=== PATIENT | male | born 1955 | race Caucasian/White ===

== ENCOUNTER 2017-11-17 09:57 | Emergency (ER) | payer MEDICARE ==
[2017-11-17] MEDS ORDERED: diphenhydrAMINE 50 MG/ML VIAL ONE (10:09)
== END 2017-11-17 11:11 | disposition home or self-care (01) ==
LOC: BURERS 09:57
DX: T63.441A Toxic effect of venom of bees, accidental (unintentional), initial encounter (principal); I10 Essential (primary) hypertension; F17.210 Nicotine dependence, cigarettes, uncomplicated
CPT/HCPCS: 94760; 96374; J1200

== ENCOUNTER 2018-12-13 07:13 | Emergency (ER) | payer MEDICARE ==
[2018-12-13] MEDS ORDERED: Ondansetron PF 4 MG/2 ML Vial ONE (07:48)
[2018-12-13] MEDS ORDERED: Lorazepam 2 MG/ML VIAL ONE ×2 (07:48→08:46)
[2018-12-13 08:05] LABS: #Basophils 0.1 thou/uL (0.0-0.2); #Lymphocytes 0.9 thou/uL (1.20-3.40); #Monocytes 0.7 thou/uL (0.11-0.59); #Neutrophils 8.4 thou/uL (1.40-6.50); %Basophils 0.9 % (0.0-1.0); %Lymphocytes 9.3 % (21.0-51.0); %Monocytes 6.6 % (0.0-10.0); %Neutrophils 83.2 % (42.0-75.0); Hemoglobin 14.7 g/dL (14.0-18.0); Mean Corpuscular HGB CONC 34.5 g/dL (32.0-36.0); Mean Corpuscular Hemoglobin 33.7 pg (27.0-31.0); Mean Corpuscular Volume 97.5 fL (78.0-98.0); Mean Platelet Volume 8.1 fL (7.4-10.4); Platelet Count 166 thou/uL (130-400); RBC Distribution Width 12.5 % (11.5-14.5); Red Blood Cell (RBC) Count 4.36 mill/uL (4.70-6.10); White Blood Cell (WBC) Count 10.1 thou/uL (4.8-10.8)
[2018-12-13 08:07] LABS: Acetaminophen Less than 6.0 mcg/mL (10.0-30.0); Alcohol Less than 10 mg/dL (Less than 10)
[2018-12-13 08:09] LABS: D-Dimer Test 1.64 *mcg/mL (0.27-0.43); PTT 35.2 SEC (22.9-36.1); Prothrombin Time 13.7 SEC (12.0-14.7)
[2018-12-13 08:10] LABS: ALT (SGPT) 226 U/L (8-55); AST (SGOT) 564 U/L (5-34); Albumin 4.4 g/dL (3.4-4.8); Alkaline Phosphatase 140 U/L (40-150); Anion Gap 31 mmol/L (10-20); BUN (Urea Nitrogen) 23 mg/dL (8.4-25.7); Bilirubin, Total 1.4 mg/dL (0.2-1.2); Calc. Creatinine Clearance 0 mL/min (70-130); Calcium 9.1 mg/dL (7.8-10.44); Chloride 95 mmol/L (98-107); Estimated GFR-MDRD Greater than 90; Globulin 4.3 g/dL (2.4-3.5); Glucose 127 mg/dL (80-115); Lipase 256 U/L (8-78); Potassium 3.4 mmol/L (3.5-5.1); Protein, Total 8.7 g/dL (5.8-8.1); Sodium 132 mmol/L (136-145)
[2018-12-13 08:16] LABS: Carbon Dioxide 9 mmol/L (23-31)
[2018-12-13 08:28] LABS: Salicylate Less than 15.0 mg/dL (15.0-30.0)
[2018-12-13] MEDS ORDERED: Multivit, Adult Inj 10 ML VIAL ONE ×2 (09:14→09:16)
[2018-12-13] MEDS ORDERED: Thiamine HCl 200 MG/2 ML VIAL ONE (09:14)
[2018-12-13] MEDS ORDERED: Pantoprazole 40 MG VIAL ONE (09:14)
[2018-12-13 09:56] LABS: Clarity Clear (Clear); Leukocyte Negative (Negative); Nitrite Negative (Negative); Protein, Urine (Dipstick) 30 mg/dL (Neg-Trace); Specific Gravity, Urine 1.025 (1.005-1.030); pH, Urine 5.5 (5.0-9.0)
[2018-12-13 09:57] LABS: Bilirubin Negative (Negative); Blood, Urine Negative (Negative); Glucose, Urine (Dipstick) Negative (Negative); Urobilinogen 0.2 mg/dL (0.2-1.0)
[2018-12-13 10:02] LABS: Bacteria/HPF Rare-Few HPF (None Seen); Crystals/HPF RARE AMORPH URATES HPF (Negative); Hyaline Casts/LPF 0-3 HYALINE CAST LPF (0-3 Hyaline); RBC/HPF None Seen HPF (0-3); Squamous Epithelial 0-3 HPF (0-3); WBC/HPF 0-3 HPF (0-3)
[2018-12-13] MEDS ORDERED: Morphine 4 MG/ML VIAL ONE (10:22)
[2018-12-13] MEDS ORDERED: diphenhydrAMINE 50 MG/ML VIAL ONE (10:22)
--- NOTE | 2018-12-13 22:11 | CT ---
CT ABDOMEN AND PELVIS WITH CONTRAST 12/13/[address] of the abdomen and pelvis was done for evaluation of pain as well as GI bleeding. Axial sli suha were acquired, Then coronal reconstructions were done. The lung bases are clear. The liver is mildly enlarged and shows diffuse fatty infiltration. The sple en appears normal. No pancreatic masses were seen and there was no particular streaking around the pa ncreas to allow a confident diagnosis of pancreatitis. The adrenal glands appear normal, as do the ki dneys. The aorta shows no sign of aneurysm. The bowel is nondistended. Some of the loops of proximal small bowel are fluid filled and perhaps sli ghtly thickened but no dilation of any loop is really present. Attention is drawn to the mesentery in the right lower quadrant about the level of the iliac crest. There is diffuse haziness in the mesent terrell to the right of the midline raising a possibility of mesenteric panniculitis. I do not see any ad enopathy to suggest entity such as lymphoma. No free air or free fluid was seen. CT of the pelvis showed no masses, fluid collections, or inflammatory changes. Extensive surgery is s een in the patient's lower lumbar spine. IMPRESSION: 1. Mild hepatomegaly with diffuse fatty infiltration of the liver. 2. Presumed mesenteric panniculitis. POS: HOME
== END 2018-12-13 10:34 | disposition short-term general hospital (02) ==
LOC: BURERS 07:13
DX: K70.10 Alcoholic hepatitis without ascites (principal); K85.20 Alcohol induced acute pancreatitis without necrosis or infection; B00.1 Herpesviral vesicular dermatitis; I10 Essential (primary) hypertension; Z87.891 Personal history of nicotine dependence; Z79.899 Other long term (current) drug therapy
CPT/HCPCS: 74177; 80053; 80307; 81003; 81015; 83605; 83690; 85025; 85379; 85610; 85730; 96361; 96365; 96372; 96375; 96376; C9113; J1200; J2060; J2270; J2405; J3411

== ENCOUNTER 2019-02-23 12:57 | Outpatient (CLI) | payer MEDICARE ==
--- NOTE | 2019-02-23 18:47 | RAD ---
RIGHT KNEE THREE VIEWS: 02/23/19 No fracture, dislocation, or joint space narrowing was seen. There is minimal if any arthritic change . A small amount of effusion is probably present. IMPRESSION: No acute findings except for possibly a small joint effusion. POS: HOME
== END 2019-02-23 12:58 | disposition home or self-care (01) ==
LOC: BURRAD 12:57
PROVIDERS: ATTEND Family Medicine
DX: M25.561 Pain in right knee (principal); G89.29 Other chronic pain

== ENCOUNTER 2019-12-28 21:44 | Emergency (ER) | payer MEDICARE ==
[~2019-12-28 21:44] MED LIST: Ondansetron PF 4 MG/2 ML Vial ONE
[2019-12-28 22:14] LABS: #Basophils 0.1 thou/uL (0.0-0.2); #Lymphocytes 2.1 thou/uL (1.20-3.40); #Monocytes 0.9 thou/uL (0.11-0.59); #Neutrophils 6.3 thou/uL (1.40-6.50); %Basophils 1.1 % (0.0-1.0); %Eosinophils 0.4 % (0.0-10.0); %Lymphocytes 21.8 % (21.0-51.0); %Monocytes 9.3 % (0.0-10.0); %Neutrophils 67.4 % (42.0-75.0); Hemoglobin 16.1 g/dL (14.0-18.0); Mean Corpuscular HGB CONC 32.1 g/dL (32.0-36.0); Mean Corpuscular Volume 96.6 fL (78.0-98.0); Mean Platelet Volume 7.6 fL (7.4-10.4); Platelet Count 272 thou/uL (130-400); RBC Distribution Width 13.3 % (11.5-14.5); White Blood Cell (WBC) Count 9.4 thou/uL (4.8-10.8)
[2019-12-28 22:16] LABS: MDiff Complete? YES; Manual Diff?? NO
[2019-12-28 22:28] LABS: ALT (SGPT) 31 U/L (8-55); AST (SGOT) 36 U/L (5-34); Albumin 4.7 g/dL (3.4-4.8); Alkaline Phosphatase 104 U/L (40-110); Anion Gap 26 mmol/L (10-20); BUN (Urea Nitrogen) 14 mg/dL (8.4-25.7); Bilirubin, Total 0.8 mg/dL (0.2-1.2); Calc. Creatinine Clearance 0 mL/min (70-130); Calcium 9.1 mg/dL (7.8-10.44); Carbon Dioxide 19 mmol/L (23-31); Chloride 101 mmol/L (98-107); Estimated GFR-MDRD 85; Globulin 3.3 g/dL (2.4-3.5); Glucose 144 mg/dL (80-115); Potassium 3.6 mmol/L (3.5-5.1); Sodium 142 mmol/L (136-145)
--- NOTE | 2019-12-29 00:30 | RAD ---
PORTABLE CHEST 12/28/19 An AP portable film at 2214 is compared with a 10/03/14 study. The heart is upper normal in size but r eally no different than the prior study. There is no vascular congestion, edema or pleural effusion. The lungs are clear. IMPRESSION: No acute thoracic findings. POS: HOME
== END 2019-12-28 23:06 | disposition home or self-care (01) ==
LOC: BURERS 21:44
DX: R00.2 Palpitations (principal); E03.9 Hypothyroidism, unspecified; I10 Essential (primary) hypertension; R11.0 Nausea; Z87.891 Personal history of nicotine dependence
CPT/HCPCS: 71045; 80053; 83880; 84443; 84484; 85025; 93005; 94760; 96374; J2405

== ENCOUNTER 2020-08-26 13:21 | Emergency (ER) | payer MEDICARE ==
[2020-08-26] MEDS ORDERED: Morphine 4 MG/ML VIAL ONE (14:12)
[2020-08-26] MEDS ORDERED: Ondansetron PF 4 MG/2 ML Vial ONE (14:12)
[2020-08-26 14:13] LABS: #Basophils 0.1 thou/uL (0.0-0.2); #Eosinphils 0.2 thou/uL (0.0-0.7); #Lymphocytes 1.9 thou/uL (1.20-3.40); #Monocytes 0.5 thou/uL (0.11-0.59); %Basophils 1.3 % (0.0-1.0); %Monocytes 8.6 % (0.0-10.0); %Neutrophils 53.1 % (42.0-75.0); Hemoglobin 17.6 g/dL (14.0-18.0); Mean Corpuscular HGB CONC 32.9 g/dL (32.0-36.0); Mean Corpuscular Hemoglobin 31.5 pg (27.0-31.0); Mean Corpuscular Volume 95.7 fL (78.0-98.0); Mean Platelet Volume 8.7 fL (7.4-10.4); Platelet Count 204 thou/uL (130-400); RBC Distribution Width 12.3 % (11.5-14.5); Red Blood Cell (RBC) Count 5.58 mill/uL (4.70-6.10); White Blood Cell (WBC) Count 5.6 thou/uL (4.8-10.8)
[2020-08-26 14:32] LABS: ALT (SGPT) 50 U/L (8-55); AST (SGOT) 61 U/L (5-34); Albumin 4.5 g/dL (3.4-4.8); Alkaline Phosphatase 148 U/L (40-110); Anion Gap 17 mmol/L (10-20); BUN (Urea Nitrogen) 12 mg/dL (8.4-25.7); Bilirubin, Total 0.5 mg/dL (0.2-1.2); Calc. Creatinine Clearance 0 mL/min (70-130); Calcium 9.3 mg/dL (7.8-10.44); Carbon Dioxide 23 mmol/L (23-31); Chloride 106 mmol/L (98-107); Globulin 3.3 g/dL (2.4-3.5); Glucose 104 mg/dL (80-115); Lipase 13 U/L (8-78); Potassium 4.1 mmol/L (3.5-5.1); Protein, Total 7.8 g/dL (5.8-8.1); Sodium 142 mmol/L (136-145)
[2020-08-26 14:50] LABS: Bilirubin Negative (Negative); Blood, Urine Negative (Negative); Clarity Slightly Cloudy (Clear); Glucose, Urine (Dipstick) Negative (Negative); Ketone, Urine Trace mg/dL (Negative); Leukocyte Negative (Negative); Nitrite Negative (Negative); Protein, Urine (Dipstick) Negative (Neg-Trace); pH, Urine 5.5 (5.0-9.0)
[2020-08-26 14:52] LABS: Specific Gravity, Urine 1.024 (1.002-1.036)
[2020-08-26] MEDS ORDERED: Iopamidol 370 76% 100 ML VIAL ONE (15:08)
[2020-08-26] MEDS ORDERED: Ketorolac Tromethamine 30 MG/ML VIAL ONE (15:30)
--- NOTE | 2020-08-26 17:00 | CT ---
CT ABDOMEN AND PELVIS WITH CONTRAST: Date: 08-26-2020 Comparison: 12-13-18 FINDINGS: The lung bases are clear except for some dependent atelectasis. There has been some interval change in the left lobe of the liver. Previously, diffuse fatty infiltra tion of the liver was seen. There was a small low density area in it that appeared to be fatty sparin g and in no way looked mass-like, nor disturbed the vessels going through it. Today there is a new 7 cm rounded area in the left antonio with some slight peripheral enhancement. This is a decided change ove r time. The possibility of a mass is raised, and further workup is needed to display it better. An M RI might be helpful. The remainder of the liver was unremarkable. The spleen was unremarkable. The pancreas shows no masses. There are some calcifications in the pancr eas that I did not appreciate before. There may have been some chronic pancreatitis in the past. The adrenal glands and kidneys were unremarkable. The abdominal aorta is calcified partially, but there i s no aneurysm. The bowel shows some minor fluid-filling of some of the proximal small bowel loops in a nonspecific f ashion. More distal small bowel and colon are not dilated. I see no inflammatory changes around the b ase of the cecum, nor is there any free air or free fluid present. CT of the pelvis shows no pelvic masses, fluid collections, or inflammatory changes. Extensive surgic al changes are seen in the lumbar spine. IMPRESSION: Interval appearance of an irregular 7 cm low density area, perhaps with a little peripheral enhanceme nt, in the left lobe of the liver. Previously, one only saw diffuse fatty infiltration of the liver a nd an area that looked like fatty sparing. The appearance today is quite different than what was pres ent before. I would recommend considering an MRI of the liver to better assess the pathological findi ng. I am concerned that this is a mass of significance. Hemangioma is in the differential but seems l ess likely given the prior CT. Findings discussed with Dr. Sanchez at 1529 on 08-26-2020. POS: HOME
== END 2020-08-26 16:06 | disposition home or self-care (01) ==
LOC: BURERS 13:21
DX: K76.9 Liver disease, unspecified (principal); R10.31 Right lower quadrant pain; I10 Essential (primary) hypertension; Z87.891 Personal history of nicotine dependence; Z79.899 Other long term (current) drug therapy
CPT/HCPCS: 74177; 80053; 81003; 83690; 85025; 96374; 96375; J1885; J2270; J2405; Q9967

== ENCOUNTER 2020-10-16 13:44 | Emergency (ER) | payer MEDICARE ==
[2020-10-16] MEDS ORDERED: Famotidine In NaCl 20 mg/50 ml Premix Bag ONE (14:18)
[2020-10-16] MEDS ORDERED: Glycopyrrolate 0.4 MG/ 2 ML VIAL ONE (14:19)
[2020-10-16] MEDS ORDERED: Ondansetron PF 4 MG/2 ML Vial ONE (14:19)
[2020-10-16 14:27] LABS: #Basophils 0.1 thou/uL (0.0-0.2); #Lymphocytes 1.4 thou/uL (1.20-3.40); #Monocytes 1.1 thou/uL (0.11-0.59); #Neutrophils 10.7 thou/uL (1.40-6.50); %Basophils 0.7 % (0.0-1.0); %Lymphocytes 10.6 % (21.0-51.0); %Monocytes 8.2 % (0.0-10.0); %Neutrophils 80.4 % (42.0-75.0); Mean Corpuscular HGB CONC 34.3 g/dL (32.0-36.0); Mean Corpuscular Hemoglobin 30.9 pg (27.0-31.0); Mean Corpuscular Volume 90.2 fL (78.0-98.0); Mean Platelet Volume 7.7 fL (7.4-10.4); Platelet Count 286 thou/uL (130-400); RBC Distribution Width 11.9 % (11.5-14.5); Red Blood Cell (RBC) Count 5.82 mill/uL (4.70-6.10); White Blood Cell (WBC) Count 13.3 thou/uL (4.8-10.8)
[2020-10-16 14:30] LABS: ALT (SGPT) 34 U/L (8-55); AST (SGOT) 35 U/L (5-34); Alkaline Phosphatase 122 U/L (40-110); Anion Gap 24 mmol/L (10-20); BUN (Urea Nitrogen) 18 mg/dL (8.4-25.7); Bilirubin, Total 2.8 mg/dL (0.2-1.2); Calc. Creatinine Clearance 0 mL/min (70-130); Calcium 9.7 mg/dL (7.8-10.44); Carbon Dioxide 23 mmol/L (23-31); Chloride 96 mmol/L (98-107); Globulin 3.1 g/dL (2.4-3.5); Glucose 172 mg/dL (80-115); Lipase 12 U/L (8-78); Potassium 3.4 mmol/L (3.5-5.1); Protein, Total 8.1 g/dL (5.8-8.1); Sodium 140 mmol/L (136-145)
[2020-10-16] MEDS ORDERED: Ketorolac Tromethamine 30 MG/ML VIAL ONE (15:02)
== END 2020-10-16 16:11 | disposition home or self-care (01) ==
LOC: BURERS 13:44
DX: K70.30 Alcoholic cirrhosis of liver without ascites (principal); I10 Essential (primary) hypertension; Z87.891 Personal history of nicotine dependence
CPT/HCPCS: 80053; 83690; 85025; 96361; 96365; 96375; J1885; J2405

== ENCOUNTER 2021-12-28 00:02 | Emergency (ER) | payer MEDICARE | END 2021-12-28 00:40 | disposition home or self-care (01) | LOC: BURERS 00:02 | DX: T52.0X1A Toxic effect of petroleum products, accidental (unintentional), initial encounter (principal); I10 Essential (primary) hypertension; Z79.899 Other long term (current) drug therapy; Z87.891 Personal history of nicotine dependence | CPT/HCPCS: 99283 ==

== ENCOUNTER 2022-01-21 08:53 | Outpatient (CLI) | payer MEDICARE, OTHER ==
[2022-01-21] MEDS ORDERED: Iopamidol 370 76% 100 ML VIAL FS ONE (08:54)
== END 2022-01-21 08:54 | disposition home or self-care (01) ==
LOC: BURCT 08:53
PROVIDERS: ATTEND Family Medicine
DX: R10.84 Generalized abdominal pain (principal); K85.90 Acute pancreatitis without necrosis or infection, unspecified; K86.89 Other specified diseases of pancreas
CPT/HCPCS: 74177; Q9967

== ENCOUNTER 2022-04-17 15:15 | Emergency (ER) | payer MEDICARE, OTHER ==
[2022-04-17] MEDS ORDERED: Ondansetron ODT 4 MG TAB ONE (15:36)
[2022-04-17] MEDS ORDERED: Lidocaine 1% PF 5 ML VIAL ONE (15:36)
[2022-04-17] MEDS ORDERED: traMADol HCl 50 MG TAB ONE (15:36)
[2022-04-17] MEDS ORDERED: Boostrix 0.5 ML (Tdap) VIAL ONE (15:55)
== END 2022-04-17 16:55 | disposition home or self-care (01) ==
LOC: BURERS 15:15
DX: S61.011A Laceration without foreign body of right thumb without damage to nail, initial encounter (principal); I10 Essential (primary) hypertension; Z87.891 Personal history of nicotine dependence; Z79.899 Other long term (current) drug therapy; Z23 Encounter for immunization; W27.0XXA Contact with workbench tool, initial encounter; Y92.009 Unspecified place in unspecified non-institutional (private) residence as the place of occurrence of the external cause
CPT/HCPCS: 12001; 90471; 90715; Q0162

== ENCOUNTER 2022-07-08 17:41 | Emergency (ER) | payer MEDICARE, OTHER ==
[2022-07-08] MEDS ORDERED: Aspirin Chewable 81 MG TAB ONE (18:22)
[2022-07-08 18:25] LABS: #Basophils 0.1 thou/uL (0.0-0.2); #Eosinphils 0.3 thou/uL (0.0-0.7); #Lymphocytes 3.7 thou/uL (1.20-3.40); #Monocytes 0.9 thou/uL (0.11-0.59); #Neutrophils 7.1 thou/uL (1.40-6.50); %Eosinophils 2.4 % (0.0-10.0); %Lymphocytes 30.3 % (21.0-51.0); %Monocytes 7.4 % (0.0-10.0); %Neutrophils 58.9 % (42.0-75.0); Hemoglobin 17.1 g/dL (14.0-18.0); Mean Corpuscular HGB CONC 33.2 g/dL (32.0-36.0); Mean Corpuscular Hemoglobin 29.3 pg (27.0-31.0); Mean Corpuscular Volume 88.4 fL (78.0-98.0); Mean Platelet Volume 9.8 fL (7.4-10.4); Platelet Count 269 thou/uL (130-400); RBC Distribution Width 13.2 % (11.5-14.5); Red Blood Cell (RBC) Count 5.84 mill/uL (4.70-6.10)
[2022-07-08 18:44] LABS: Anion Gap 13 mmol/L (10-20); Carbon Dioxide 25 mmol/L (23-31); Chloride 105 mmol/L (98-107); Potassium 3.9 mmol/L (3.5-5.1); Sodium 139 mmol/L (136-145)
[2022-07-08 18:45] LABS: ALT (SGPT) 24 U/L (8-55); AST (SGOT) 34 U/L (5-34); Albumin 4.3 g/dL (3.4-4.8); Alkaline Phosphatase 116 U/L (40-110); BUN (Urea Nitrogen) 12 mg/dL (8.4-25.7); Calc. Creatinine Clearance 0 mL/min (70-130); Calcium 9.1 mg/dL (7.8-10.44); Estimated GFR 97; Globulin 2.9 g/dL (2.4-3.5); Glucose 93 mg/dL (80-115); Protein, Total 7.2 g/dL (5.8-8.1)
[2022-07-08 18:46] LABS: Prothrombin Time 12.9 sec (12.0-14.7)
[2022-07-08 18:47] LABS: PTT 40.5 sec (22.9-36.1)
== END 2022-07-08 21:25 | disposition short-term general hospital (02) ==
LOC: BURERS 17:41
DX: R00.1 Bradycardia, unspecified (principal); I10 Essential (primary) hypertension; Z87.891 Personal history of nicotine dependence
CPT/HCPCS: 71045; 80053; 83880; 84484; 85025; 85610; 85730; 93005; 94760

== ENCOUNTER 2024-10-03 08:37 | Outpatient (CLI) | payer MEDICARE, OTHER ==
[2024-10-03] MEDS ORDERED: Iopamidol 370 76% 100 ML VIAL ONE (13:51)
== END 2024-10-03 08:38 | disposition home or self-care (01) ==
LOC: BURCT 08:37
PROVIDERS: ATTEND Family Medicine
DX: N28.89 Other specified disorders of kidney and ureter (principal)
CPT/HCPCS: 74178; Q9967